=== PATIENT | female | born 1940 | race Caucasian/White ===

== ENCOUNTER → 2017-02-18 | Outpatient (CLI) | payer MEDICARE, BC ==
--- NOTE | 2017-02-20 12:01 | MM ---
Reason for exam: screening (asymptomatic). Last mammogram was performed 4 years and 4 months ago. History: Patient is postmenopausal. Family history of premenopausal breast cancer in sister. Benign excisional biopsy of the left breast, December 11, 1999. Took estrogen for 13 years. Physical Findings: A clinical breast exam by your physician is recommended on an annual basis and results should be correlated with mammographic findings. MG 3D Screening Mammo W/Cad Bilateral CC and MLO view(s) were taken. Prior study comparison: October 29, 2012, bilateral digital screening mammo w/CAD. There are scattered fibroglandular densities. No significant changes when compared with prior studies. ASSESSMENT: Negative, BI-RAD 1 RECOMMENDATION: Routine screening mammogram of both breasts in 1 year.
== END | disposition home or self-care (01) ==
LOC: RADMAMWWP 14:21
PROVIDERS: ATTEND Obstetrics & Gynecology
DX: Z12.31 Encounter for screening mammogram for malignant neoplasm of breast (principal)
CPT/HCPCS: 77063; G0202

== ENCOUNTER 2018-04-15 12:24 | Emergency (ER) | payer MEDICARE, BC ==
[2018-04-15 12:31] VITALS: TEMP 98
[2018-04-15] MEDS ORDERED: SODIUM CHLORIDE 0.9% 500 ML IV ONE ×2 (12:51→14:38)
--- NOTE | 2018-04-15 12:56 | ED ---
General Adult HPI - General Chief complaint: Recheck/Abnormal Lab/Rx Stated complaint: elevated BP Time Seen by Provider: 04/15/18 12:38 Source: patient, RN notes reviewed, old records reviewed Mode of arrival: wheelchair Limitations: no limitations - History of Present Illness Initial comments: 78-year-old female presented for evaluation of elevated blood pressure. Patient does have history of hypertension. She is currently taking lisinopril. Several weeks ago she was seen by her primary care physician was noted to have an elevated blood pressure at that time her physician stated she should take 1 additional lisinopril. Patient states that she has not been checking her blood pressure between however yesterday she took it due to a subconjunctival hemorrhage on the left. She noted that her blood pressure was 190/80. She took an extra dose of lisinopril yesterday evening and rechecked her blood pressure this morning it was still elevated so she took 2 doses of her lisinopril this morning. Patient has no complaints time my evaluation. She did have a mild headache yesterday which was relieved with Advil. She has no headache. No focal weakness. No chest pain. No nausea vomiting or diarrhea. Patient's only other chronic medical problem is hypercholesterolemia. - Related Data Home Medications Medication Instructions Recorded Confirmed Levothyroxine Sodium [Synthroid] 75 mcg PO DAILY 04/15/18 04/15/18 Lisinopril [Prinivil] 20 mg PO DAILY 04/15/18 04/15/18 Lovastatin [Mevacor] 40 mg PO HS 04/15/18 04/15/18 Previous Rx's Medication Instructions Recorded Lisinopril 30 mg PO DAILY #30 tab 04/15/18 Allergies Allergy/AdvReac Type Severity Reaction Status Date / Time No Known Allergies Allergy Unverified 04/15/18 12:31 Review of Systems ROS Statement: Those systems with pertinent positive or pertinent negative responses have been documented in the HPI. ROS Other: All systems not noted in ROS Statement are negative. Past Medical History Past Medical History: Hyperlipidemia, Hypertension History of Any Multi-Drug Resistant Organisms: None Reported Past Surgical History: No Surgical Hx Reported Past Psychological History: No Psychological Hx Reported Smoking Status: Never smoker Past Alcohol Use History: None Reported Past Drug Use History: None Reported General Exam Limitations: no limitations General appearance: alert, in no apparent distress Head exam: Present: atraumatic, normocephalic Eye exam: Present: PERRL, EOMI, other (Left subconjunctival hemorrhage) ENT exam: Present: normal exam Neck exam: Present: normal inspection. Absent: tenderness, meningismus Respiratory exam: Present: normal lung sounds bilaterally. Absent: respiratory distress, wheezes, rales Cardiovascular Exam: Present: regular rate, normal rhythm GI/Abdominal exam: Present: soft. Absent: distended, tenderness, guarding Extremities exam: Present: normal inspection, full ROM, normal capillary refill. Absent: pedal edema Neurological exam: Present: alert, oriented X3, CN II-XII intact. Absent: motor sensory deficit Psychiatric exam: Present: normal affect, normal mood Skin exam: Present: warm, dry, intact. Absent: cyanosis, diaphoretic Course Vital Signs 04/15/18 04/15/18 04/15/18 12:29 14:11 14:37 Temperature 98 F Pulse Rate 65 67 54 L Respiratory 18 16 18 Rate Blood Pressure 176/95 212/88 224/91 O2 Sat by Pulse 98 98 Oximetry 04/15/18 04/15/18 04/15/18 15:14 15:55 15:57 Temperature Pulse Rate 75 64 Respiratory 20 18 Rate Blood Pressure 192/89 178/79 163/78 O2 Sat by Pulse 100 Oximetry Medical Decision Making - Medical Decision Making Medical record is reviewed, patient is currently on 20 mg of lisinopril. Basic laboratory studies are obtained, these are all within normal limits including normal kidney function. Chest x-ray negative for cardiomegaly or pulmonary edema. Patient's blood pressure is down trending in the emergency department. Repeat is 163/78. She remains asymptomatic while in the emergency department. Her lisinopril dose will be increased to 30 mg. She will follow-up with her primary care physician. She will return with the development of any symptoms including focal weakness, headache, or chest pain. - Lab Data Result diagrams: 04/15/18 14:06 04/15/18 14:06 Lab Results 04/15/18 04/15/18 04/15/18 Range/Units 14:06 14:06 14:06 WBC 7.2 (3.8-10.6) k/uL RBC 4.51 (3.80-5.40) m/uL Hgb 14.0 (11.4-16.0) gm/dL Hct 41.3 (34.0-46.0) % MCV 91.5 (80.0-100.0) fL MCH 31.0 (25.0-35.0) pg MCHC 33.9 (31.0-37.0) g/dL RDW 13.7 (11.5-15.5) % Plt Count 239 (150-450) k/uL Neutrophils % 49 % Lymphocytes % 38 % Monocytes % 6 % Eosinophils % 4 % Basophils % 1 % Neutrophils # 3.6 (1.3-7.7) k/uL Lymphocytes # 2.8 (1.0-4.8) k/uL Monocytes # 0.4 (0-1.0) k/uL Eosinophils # 0.3 (0-0.7) k/uL Basophils # 0.0 (0-0.2) k/uL Sodium 142 (137-145) mmol/L Potassium 4.3 (3.5-5.1) mmol/L Chloride 105 (98-107) mmol/L Carbon Dioxide 25 (22-30) mmol/L Anion Gap 12 mmol/L BUN 18 H (7-17) mg/dL Creatinine 0.89 (0.52-1.04) mg/dL Est GFR (CKD-EPI)AfAm 72 (>60 ml/min/1.73 sqM) Est GFR (CKD-EPI)NonAf 63 (>60 ml/min/1.73 sqM) Glucose 92 (74-99) mg/dL Calcium 10.0 (8.4-10.2) mg/dL Total Bilirubin 0.6 (0.2-1.3) mg/dL AST 21 (14-36) U/L ALT 25 (9-52) U/L Alkaline Phosphatase 68 (38-126) U/L Troponin I <0.012 (0.000-0.034) ng/mL Total Protein 7.0 (6.3-8.2) g/dL Albumin 4.5 (3.5-5.0) g/dL Disposition Clinical Impression: Asymptomatic hypertension Disposition: HOME SELF-CARE Condition: Fair Instructions: Hypertension (ED) Prescriptions: Lisinopril 30 mg PO DAILY #30 tab Is patient prescribed a controlled substance at d/c from ED?: No Referrals: Conchita Singh MD [Primary Care Provider] - 1-2 days Time of Disposition: 15:59
[2018-04-15 14:17] LABS: Basophils % (A) 1 %; Eosinophils # (A) 0.3 k/uL (0-0.7); Eosinophils % (A) 4 %; HCT 41.3 % (34.0-46.0); Lymphocytes # (A) 2.8 k/uL (1.0-4.8); Lymphocytes % (A) 38 %; MCHC 33.9 g/dL (31.0-37.0); MCV 91.5 fL (80.0-100.0); Mean Platelet Volume 7.6; Monocytes # (A) 0.4 k/uL (0-1.0); Monocytes % (A) 6 %; Neutrophils # (A) 3.6 k/uL (1.3-7.7); Neutrophils % (A) 49 %; Platelet Count 239 k/uL (150-450); RBC 4.51 m/uL (3.80-5.40); RDW 13.7 % (11.5-15.5); WBC 7.2 k/uL (3.8-10.6)
[2018-04-15] MEDS ORDERED: hydrALAZINE HCL 20 MG/ML 1 ML VIAL IVP STA (14:24)
[2018-04-15 14:33] LABS: Albumin 4.5 g/dL (3.5-5.0); Potassium 4.3 mmol/L (3.5-5.1); Total Bilirubin 0.6 mg/dL (0.2-1.3)
--- NOTE | 2018-04-15 14:34 | XR ---
EXAMINATION TYPE: XR chest 2V DATE OF EXAM: 04/15/2018 COMPARISON: 12/07/2012 TECHNIQUE: PA and lateral views submitted. HISTORY: Pain and elevated blood pressure FINDINGS: The lungs are clear and there is no pneumothorax, pleural effusion, or focal pneumonia. Hyperinflat ion suggests COPD. Diffuse osteopenia and arthropathy of the shoulders. Heart size is stable. No over t failure. Degenerative change of the spine. IMPRESSION: 1. No acute process. Correlate for COPD.
[2018-04-15 15:56] VITALS: PULSE 64; RESP 18
[2018-04-15 15:57] VITALS: BP 163/78
== END 2018-04-15 16:19 | disposition home or self-care (01) ==
LOC: EC 12:24
DX: I10 Essential (primary) hypertension (principal); H11.32 Conjunctival hemorrhage, left eye; E78.5 Hyperlipidemia, unspecified; E78.00 Pure hypercholesterolemia, unspecified; Z79.899 Other long term (current) drug therapy
CPT/HCPCS: 36415; 80053; 84484; 85025; 71046; 99284; 96374; J0360

== ENCOUNTER → 2018-04-27 | Outpatient (CLI) | payer MEDICARE, BC ==
--- NOTE | 2018-04-27 17:03 | US ---
EXAMINATION TYPE: US carotid duplex BILAT DATE OF EXAM: 04/27/2018 COMPARISON: NONE CLINICAL HISTORY: Z82.49 FAMILY HISTORY OF ISCHEMIC HEART. EXAM MEASUREMENTS: RIGHT: Peak Systolic Velocity (PSV) cm/sec ----- Right CCA: 60.7 ----- Right ICA: 90.8 ----- Right ECA: 89.7 ICA/CCA ratio: 1.5 RIGHT: End Diastole cm/sec ----- Right CCA: 17.1 ----- Right ICA: 32.5 ----- Right ECA: 21.5 LEFT: Peak Systolic Velocity (PSV) cm/sec ----- Left CCA: 79.9 ----- Left ICA: 90.8 ----- Left ECA: 88.4 ICA/CCA ratio: 1.1 LEFT: End Diastole cm/sec ----- Left CCA: 18.8 ----- Left ICA: 31.4 ----- Left ECA: 10.7 VERTEBRALS (direction of flow): Right Vertebral: Antegrade Left Vertebral: Antegrade Rhythm: Normal No elevated velocities, no significant stenosis. Grayscale, color Doppler, spectral Doppler imaging performed of the carotid arteries, waveform analys is does not show significant stenosis of the proximal internal carotid arteries bilaterally by Dopple r criteria. IMPRESSION: No hemodynamic significant stenosis of the proximal internal carotid arteries bilaterall y by Doppler criteria, an indirect measurement of carotid stenosis.
== END | disposition home or self-care (01) ==
LOC: RADUSWWP 15:40
PROVIDERS: ATTEND Family Medicine
DX: Z13.6 Encounter for screening for cardiovascular disorders (principal); Z82.49 Family history of ischemic heart disease and other diseases of the circulatory system
CPT/HCPCS: 93880

== ENCOUNTER → 2018-07-08 | Outpatient (CLI) | payer MEDICARE, BC ==
--- NOTE | 2018-07-08 22:34 | CT ---
EXAMINATION TYPE: CT iac wo/w con DATE OF EXAM: 07/08/2018 COMPARISON: NONE HISTORY: Right sided hearing loss. CT DLP: 283 mGycm. Automated Exposure Control for Dose Reduction was Utilized. TECHNIQUE: CT scan of internal auditory canal is performed without and with IV contrast, thin cut axi al images are obtained, coronal reformatted images are also reviewed. Patient injected with 80 cc of Isovue-300 for the study. FINDINGS: The external auditory canals are patent bilaterally. Mastoid air cells show no evidence of abnormal opacification bilaterally. There is aeration extending into the bilateral petrous apices wi thout suspicious opacification. The middle ear ossicles are symmetric and unremarkable. There is no evidence of suspicious surrounding soft tissue density to suggest cholesteatoma. The scutum is prese rved bilaterally. The cochlea and the semicircular canals are symmetric and unremarkable. Vestibula r aqueduct and internal carotid canal appear unremarkable. No suspicious enhancement is present. Temporomandibular joints show symmetric moderate narrowing and flattening of the mandibular condyles. Visualized paranasal sinuses show mild to moderate inferior mucosal thickening in the right maxilla ry sinus. Remainder visualized paranasal sinuses are clear. Nasal septum is deviated to right of midl ine. Visualized portion brain parenchyma is felt within normal limits. IMPRESSION: No significant abnormality seen to account for patient's symptoms of right-sided hearing loss.
== END | disposition home or self-care (01) ==
LOC: RADCTMAIN 15:39
PROVIDERS: ATTEND Otolaryngology
DX: H93.19 Tinnitus, unspecified ear (principal); H91.91 Unspecified hearing loss, right ear
CPT/HCPCS: 82565; 84520; 70482; 36415; Q9967

== ENCOUNTER → 2019-07-22 | Outpatient (CLI) | payer MEDICARE, BC ==
--- NOTE | 2019-07-25 15:03 | MM ---
Reason for exam: screening (asymptomatic). Last mammogram was performed 2 years and 5 months ago. History: Patient is postmenopausal. Family history of premenopausal breast cancer in sister at age 35. Benign excisional biopsy of the left breast, December 11, 1999. Took estrogen for 13 years. Physical Findings: A clinical breast exam by your physician is recommended on an annual basis and results should be correlated with mammographic findings. MG 3D Screening Mammo W/Cad Bilateral CC and MLO view(s) were taken. Prior study comparison: February 18, 2017, bilateral MG 3d screening mammo w/cad. October 29, 2012, bilateral digital screening mammo w/CAD. There are scattered fibroglandular densities. Benign appearing vascular bilateral calcifications. No suspicious abnormality. No significant changes when compared with prior studies. ASSESSMENT: Benign, BI-RAD 2 RECOMMENDATION: Routine screening mammogram of both breasts in 1 year.
== END | disposition home or self-care (01) ==
LOC: RADMAMWWP 14:12
PROVIDERS: ATTEND Family Medicine
DX: Z12.31 Encounter for screening mammogram for malignant neoplasm of breast (principal)
CPT/HCPCS: 77063; 77067

== ENCOUNTER 2019-12-06 21:15 | Emergency (ER) | payer MEDICARE, BC ==
[2019-12-06 21:24] VITALS: TEMP 97.4
[2019-12-06] MEDS ORDERED: SODIUM CHLORIDE 0.9% 1,000 ML IV STA (22:22)
[2019-12-06] MEDS ORDERED: SODIUM CHLORIDE 0.9% 500 ML 500 ML IV STA (22:22)
--- NOTE | 2019-12-06 22:29 | ED ---
Recheck HPI - General Chief Complaint: Recheck/Abnormal Lab/Rx Stated Complaint: high BP Time Seen by Provider: 12/06/19 21:50 Source: patient Mode of arrival: ambulatory Limitations: no limitations - History of Present Illness Initial Comments: This is a 71-year-old female with a history of hypertension states her blood pressure is been going erratic today. She did take extra medication throughout the day the patient states that he still has blood pressure that has been up and down throughout the day. He states he started feeling some slight frontal dull achy discomfort around her for had no blurry vision no focal loss of function to her upper or lower extremities no nausea vomiting fevers chills sweats or other symptoms. She states the headache was mild. - Related Data Home Medications Medication Instructions Recorded Confirmed Levothyroxine Sodium [Synthroid] 75 mcg PO DAILY 04/15/18 12/06/19 Atorvastatin [Lipitor] 20 mg PO DAILY 12/06/19 12/06/19 amLODIPine [Norvasc] 2.5 mg PO DAILY 12/06/19 12/06/19 Previous Rx's Medication Instructions Recorded Lisinopril 30 mg PO DAILY #30 tab 04/15/18 Allergies Allergy/AdvReac Type Severity Reaction Status Date / Time No Known Allergies Allergy Verified 12/06/19 22:35 Review of Systems ROS Statement: Those systems with pertinent positive or pertinent negative responses have been documented in the HPI. ROS Other: All systems not noted in ROS Statement are negative. Past Medical History Past Medical History: Hyperlipidemia, Hypertension History of Any Multi-Drug Resistant Organisms: None Reported Past Surgical History: Hysterectomy, Orthopedic Surgery Additional Past Surgical History / Comment(s): jaw reconstruction after FX Past Psychological History: No Psychological Hx Reported Smoking Status: Never smoker Past Alcohol Use History: Rare Past Drug Use History: None Reported General Exam - General Exam Comments Initial Comments: This is a well-developed well-nourished awake alert oriented 3 female Limitations: no limitations General appearance: alert, in no apparent distress Head exam: Present: atraumatic, normocephalic, normal inspection Eye exam: Present: normal appearance, PERRL, EOMI. Absent: scleral icterus, conjunctival injection, periorbital swelling ENT exam: Present: mucous membranes dry Neck exam: Present: normal inspection, full ROM, other (No stridor JVD or bruits). Absent: tenderness, meningismus, lymphadenopathy Respiratory exam: Present: normal lung sounds bilaterally. Absent: respiratory distress, wheezes, rales, rhonchi, stridor Cardiovascular Exam: Present: regular rate, normal rhythm, normal heart sounds. Absent: systolic murmur, diastolic murmur, rubs, gallop, clicks GI/Abdominal exam: Present: soft, normal bowel sounds. Absent: distended, tenderness, guarding, rebound, rigid, bruit, pulsatile mass Extremities exam: Present: normal inspection, full ROM, normal capillary refill. Absent: tenderness, pedal edema, joint swelling, calf tenderness Back exam: Present: normal inspection Neurological exam: Present: alert, oriented X3, CN II-XII intact Psychiatric exam: Present: normal affect, normal mood Skin exam: Present: warm, dry, intact, normal color. Absent: rash Course Vital Signs 12/06/19 12/06/19 12/06/19 21:20 22:02 22:06 Temperature 97.4 F L Pulse Rate 82 68 Pulse Rate [ 88 Forest Economist ] Respiratory 18 16 Rate Blood Pressure 152/85 191/86 O2 Sat by Pulse 100 96 Oximetry Medical Decision Making - Medical Decision Making Patient's feeling improved her blood pressure is normalized patient was given fluids clinical evidence of dehydration. Patient will keep her follow-up with her doctor tomorrow as planned return if needed - Lab Data Result diagrams: 12/06/19 22:36 12/06/19 22:36 Lab Results 12/06/19 12/06/19 12/06/19 Range/Units 22:36 22:36 22:36 WBC 8.6 (3.8-10.6) k/uL RBC 4.41 (3.80-5.40) m/uL Hgb 13.8 (11.4-16.0) gm/dL Hct 40.7 (34.0-46.0) % MCV 92.5 (80.0-100.0) fL MCH 31.2 (25.0-35.0) pg MCHC 33.8 (31.0-37.0) g/dL RDW 13.2 (11.5-15.5) % Plt Count 261 (150-450) k/uL Neutrophils % (Manual) 51 % Lymphocytes % (Manual) 41 % Monocytes % (Manual) 4 % Eosinophils % (Manual) 3 % Basophils % (Manual) 1 % Neutrophils # (Manual) 4.39 (1.3-7.7) k/uL Lymphocytes # (Manual) 3.53 (1.0-4.8) k/uL Monocytes # (Manual) 0.34 (0-1.0) k/uL Eosinophils # (Manual) 0.26 (0-0.7) k/uL Basophils # (Manual) 0.09 (0-0.2) k/uL Nucleated RBCs 0 (0-0) /100 WBC Manual Slide Review Performed Sodium 139 (137-145) mmol/L Potassium 4.1 (3.5-5.1) mmol/L Chloride 105 (98-107) mmol/L Carbon Dioxide 26 (22-30) mmol/L Anion Gap 8 mmol/L BUN 20 H (7-17) mg/dL Creatinine 0.96 (0.52-1.04) mg/dL Est GFR (CKD-EPI)AfAm 66 (>60 ml/min/1.73 sqM) Est GFR (CKD-EPI)NonAf 57 (>60 ml/min/1.73 sqM) Glucose 100 H (74-99) mg/dL Calcium 10.0 (8.4-10.2) mg/dL Magnesium 2.2 (1.6-2.3) mg/dL Total Bilirubin 0.6 (0.2-1.3) mg/dL AST 23 (14-36) U/L ALT 14 (4-34) U/L Alkaline Phosphatase 80 (38-126) U/L Creatine Kinase 44 (30-135) U/L Troponin I <0.012 (0.000-0.034) ng/mL Total Protein 7.2 (6.3-8.2) g/dL Albumin 4.5 (3.5-5.0) g/dL Urine Color Urine Appearance (Clear) Urine pH (5.0-8.0) Ur Specific [place] (1.001-1.035) Urine Protein (Negative) Urine Glucose (UA) (Negative) Urine Ketones (Negative) Urine Blood (Negative) Urine Nitrite (Negative) Urine Bilirubin (Negative) Urine Urobilinogen (<2.0) mg/dL Ur Leukocyte Esterase (Negative) Urine RBC (0-5) /hpf Urine WBC (0-5) /hpf Ur Squamous Epith Cells (0-4) /hpf Urine Bacteria (None) /hpf 12/06/19 Range/Units 22:36 WBC (3.8-10.6) k/uL RBC (3.80-5.40) m/uL Hgb (11.4-16.0) gm/dL Hct (34.0-46.0) % MCV (80.0-100.0) fL MCH (25.0-35.0) pg MCHC (31.0-37.0) g/dL RDW (11.5-15.5) % Plt Count (150-450) k/uL Neutrophils % (Manual) % Lymphocytes % (Manual) % Monocytes % (Manual) % Eosinophils % (Manual) % Basophils % (Manual) % Neutrophils # (Manual) (1.3-7.7) k/uL Lymphocytes # (Manual) (1.0-4.8) k/uL Monocytes # (Manual) (0-1.0) k/uL Eosinophils # (Manual) (0-0.7) k/uL Basophils # (Manual) (0-0.2) k/uL Nucleated RBCs (0-0) /100 WBC Manual Slide Review Sodium (137-145) mmol/L Potassium (3.5-5.1) mmol/L Chloride (98-107) mmol/L Carbon Dioxide (22-30) mmol/L Anion Gap mmol/L BUN (7-17) mg/dL Creatinine (0.52-1.04) mg/dL Est GFR (CKD-EPI)AfAm (>60 ml/min/1.73 sqM) Est GFR (CKD-EPI)NonAf (>60 ml/min/1.73 sqM) Glucose (74-99) mg/dL Calcium (8.4-10.2) mg/dL Magnesium (1.6-2.3) mg/dL Total Bilirubin (0.2-1.3) mg/dL AST (14-36) U/L ALT (4-34) U/L Alkaline Phosphatase (38-126) U/L Creatine Kinase (30-135) U/L Troponin I (0.000-0.034) ng/mL Total Protein (6.3-8.2) g/dL Albumin (3.5-5.0) g/dL Urine Color Yellow Urine Appearance Clear (Clear) Urine pH 6.0 (5.0-8.0) Ur Specific [place] 1.016 (1.001-1.035) Urine Protein Negative (Negative) Urine Glucose (UA) Negative (Negative) Urine Ketones Negative (Negative) Urine Blood Negative (Negative) Urine Nitrite Negative (Negative) Urine Bilirubin Negative (Negative) Urine Urobilinogen <2.0 (<2.0) mg/dL Ur Leukocyte Esterase Moderate H (Negative) Urine RBC 2 (0-5) /hpf Urine WBC 7 H (0-5) /hpf Ur Squamous Epith Cells 2 (0-4) /hpf Urine Bacteria Rare H (None) /hpf - EKG Data -: EKG Interpreted by Me (Sinus rhythm rate was 60. A 150 to QRS 80 QT since QTC 404/44 minimal volt) - Radiology Data Radiology results: report reviewed (Did review the imaging and report no acute findings.), image reviewed Disposition Clinical Impression: Hypertension, Dehydration Disposition: HOME SELF-CARE Condition: Good Instructions (If sedation given, give patient instructions): Hypertension (ED), Dehydration (ED) Is patient prescribed a controlled substance at d/c from ED?: No Referrals: Conchita Singh MD [Primary Care Provider] - 1-2 days
[2019-12-06 23:02] LABS: HCT 40.7 % (34.0-46.0); HGB 13.8 gm/dL (11.4-16.0); MCH 31.2 pg (25.0-35.0); MCHC 33.8 g/dL (31.0-37.0); MCV 92.5 fL (80.0-100.0); Mean Platelet Volume 7.8; Platelet Count 261 k/uL (150-450); RBC 4.41 m/uL (3.80-5.40); RDW 13.2 % (11.5-15.5); WBC 8.6 k/uL (3.8-10.6)
--- NOTE | 2019-12-06 23:02 | XR ---
EXAMINATION TYPE: XR chest 2V DATE OF EXAM: 12/06/2019 COMPARISON: 04/15/2018 HISTORY: Hypertension TECHNIQUE: 2 views FINDINGS: Heart is normal. Lungs are clear. Diaphragm is normal. Bony thorax is intact. There are tyler st leads. IMPRESSION: No active cardiopulmonary disease. Normal heart. No change.
[2019-12-06 23:11] LABS: Albumin 4.5 g/dL (3.5-5.0); Appearance,Urine Clear (Clear); Bacteria,Urine Rare /hpf; Bilirubin,Urine Negative (Negative); Blood,Urine Negative (Negative); Color,Urine Yellow; Glucose,Urine (UA) Negative (Negative); Ketones,Urine Negative (Negative); Leukocyte Esterase,Urine Moderate (Negative); Magnesium 2.2 mg/dL (1.6-2.3); Nitrite,Urine Negative (Negative); Potassium 4.1 mmol/L (3.5-5.1); Protein,Urine Negative (Negative); RBC,Urine 2 /hpf (0-5); Specific Gravity,Urine 1.016 (1.001-1.035); Squamous Epithelial Cell,Urine 2 /hpf (0-4); Total Bilirubin 0.6 mg/dL (0.2-1.3); Total Protein 7.2 g/dL (6.3-8.2); Urobilinogen,Urine <2.0 mg/dL (<2.0); WBC,Urine 7 /hpf (0-5)
[2019-12-06 23:31] LABS: Basophils # (M) 0.09 k/uL (0-0.2); Eosinophils # (M) 0.26 k/uL (0-0.7); Lymphocytes # (M) 3.53 k/uL (1.0-4.8); Monocytes # (M) 0.34 k/uL (0-1.0); Neutrophils # (M) 4.39 k/uL (1.3-7.7); Neutrophils % (M) 51 %; Nucleated Red Blood Cells 0 /100 WBC (0-0); Total Cells Counted 100
[2019-12-07 00:14] VITALS: BP 141/69; PULSE 67; RESP 20
== END 2019-12-07 00:17 | disposition home or self-care (01) ==
LOC: EC 21:15
DX: E86.0 Dehydration (principal); I10 Essential (primary) hypertension; R51 Headache; E78.5 Hyperlipidemia, unspecified; Z79.890 Hormone replacement therapy; Z79.899 Other long term (current) drug therapy
CPT/HCPCS: 36415; 71046; 80053; 81001; 82550; 83735; 84484; 85025; 93005; 96360; 96361; 99284

== ENCOUNTER → 2021-08-30 | Outpatient (CLI) | payer MEDICARE, BC ==
--- NOTE | 2021-08-30 15:58 | US ---
EXAMINATION TYPE: US axilla RT DATE OF EXAM: 08/30/2021 COMPARISON: NONE CLINICAL HISTORY: R22.2 Localized swelling, mass and lump, trunk. Patient has small palpable under he r right axilla for 1 year, no skin changes, not tender, pt says it has gotten bigger, small palp felt by settlement technician also Soft tissue scan of right inferior axilla produces normal anatomy with small lymph node = 0.7 x 0.6 x 0.4cm IMPRESSION: 1. Sl normal-appearing lymph node right axilla
== END | disposition home or self-care (01) ==
LOC: RADUSWWP 13:27
PROVIDERS: ATTEND Family Medicine
DX: R22.2 Localized swelling, mass and lump, trunk (principal)

== ENCOUNTER → 2021-09-12 | Outpatient (CLI) | payer MEDICARE, BC ==
--- NOTE | 2021-09-12 12:41 | P.STRESS ---
- Stress Test Note Stress Test Results/Findings: Exam Performed: NM stress cardiolite complete Exam Date: 09/12/21 Reason for Exam: Back, shoulder and jaw pain Height: 4 ft 11 in Weight: 53.524 kg Protocol: Prashanth Stage: 3 Duration of Exercise: 7:13 Resting Heart Rate: 58 Resting Blood Pressure: 146/67 Maximum Achieved Heart Rate: 135 Maximum Achieved Blood Pressure: 213/65 85% PMHR: 119 100% PMHR: 140 METS: 8.7 Technologist Comment: Stress Test Results/Findings: Patient underwent exercise stress EKG with a Prashanth protocol treadmill stress test. Patient exercised into Stage 3 for a total of 7 minutes and 13 seconds reaching a total of 8.7 METS. Patient's maximum heart rate was 135 which represented 96% age-predicted maximum heart rate. Stress EKG findings: At baseline patient's EKG showed normal sinus rhythm, normal axis, no significant ST or T wave abnormalities. At peak exercise, EKG showed nonspecific 0.[address] depressions in the inferior and lateral leads. Conclusions: 1. Normal EKG response to exercise without evidence of inducible ischemia. 2. Fair exercise capacity.
--- NOTE | 2021-09-12 13:02 | NM ---
EXAMINATION TYPE: NM stress cardiolite complete DATE OF EXAM: 09/12/2021 COMPARISON: NONE HISTORY: Hypertension TECHNIQUE: After the intravenous administration of 10.2 mCi Tc 99m Sestamibi - Rest images obtained 60 minutes post injection. The patient exercised using a JADA protocol and 1 minute prior to peak exercise was injected with 26.4 mCi Tc 99m Sestamibi - Stress images obtained 40 minutes post injecti on. FINDINGS: Targeted heart rate was achieved during performance of the study. Review of stress and rest SPECT loraine ges demonstrates no distinct perfusion abnormality. Gated analysis shows normal wall motion with an estimated left ventricular ejection fraction of 33 %. IMPRESSION: No scintigraphic evidence for reversible ischemia Ejection fraction of 33% correlate clinically with echocardiogram.
== END ==
LOC: RADNMMAIN 08:35
PROVIDERS: ATTEND Family Medicine
DX: I10 Essential (primary) hypertension (principal); M54.9 Dorsalgia, unspecified; M25.519 Pain in unspecified shoulder; R68.84 Jaw pain
CPT/HCPCS: 93017; 78452; A9500

== ENCOUNTER → 2021-09-24 | Outpatient (CLI) | payer MEDICARE, BC ==
--- NOTE | 2021-09-25 10:00 | ECHOF ---
Referral Reason:R06.09 Other forms of dyspnea MEASUREMENTS -------- HEIGHT: 149.9 cm WEIGHT: 53.5 kg BP: 161/72 RVIDd: 3.0 cm (< 3.3) IVSd: 1.0 cm (0.6 - 1.1) LVIDd: 3.5 cm (3.9 - 5.3) LVPWd: 1.0 cm (0.6 - 1.1) IVSs: 1.4 cm LVIDs: 2.4 cm LVPWs: 1.4 cm LA Diam: 3.3 cm (2.7 - 3.8) Ao Diam: 2.6 cm (2.0 - 3.7) AV Cusp: 1.6 cm (1.5 - 2.6) MV EXCURSION: 12.180 mm (> 18.000) MV EF SLOPE: 69 mm/s (70 - 150) EPSS: 0.3 cm MV E Keith: 0.73 m/s MV DecT: 231 ms MV A Keith: 0.85 m/s MV E/A Ratio: 0.86 RAP: 5.00 mmHg RVSP: 26.02 mmHg FINDINGS -------- Sinus rhythm. This was a technically adequate study. The left ventricular size is normal. Left ventricular wall thickness is normal. Overall left vent ricular systolic function is normal with, an EF between 55 - 60 %. The right ventricle is normal in size. Normal LA size by volume 22+/-6 ml/m2. The right atrium is normal in size. Interatrial and interventricular septum intact. The aortic valve is trileaflet, and appears structurally normal. No aortic stenosis or regurgitation. The mitral valve is normal. Mild mitral annular calcification present. Mild tricuspid regurgitation present. Right ventricular systolic pressure is normal at < 35 mmHg. Trace/mild (physiologic) pulmonic regurgitation. The aortic root size is normal. Normal inferior vena cava with normal inspiratory collapse consistent with estimated right atrial pre ssure of 5 mmHg. There is no pericardial effusion. CONCLUSIONS -------- 1. The left ventricular size is normal. 2. Left ventricular wall thickness is normal. 3. Overall left ventricular systolic function is normal with, an EF between 55 - 60 %. 4. The aortic valve is trileaflet, and appears structurally normal. No aortic stenosis or regurgitati on. 5. Mild mitral annular calcification present. 6. Mild tricuspid regurgitation present. 7. Trace/mild (physiologic) pulmonic regurgitation. 8. There is no pericardial effusion. WELDING ROBOT OPERATOR: FEI Rice
== END | disposition home or self-care (01) ==
LOC: RADECHMAIN 10:55
PROVIDERS: ATTEND Family Medicine
DX: I08.8 Other rheumatic multiple valve diseases (principal)
CPT/HCPCS: 93306

== ENCOUNTER → 2021-10-29 | Outpatient (CLI) | payer MEDICARE, BC ==
--- NOTE | 2021-10-31 10:00 | MM ---
Reason for exam: screening (asymptomatic). Last mammogram was performed 2 years and 3 months ago. History: Patient is postmenopausal. Family history of premenopausal breast cancer in sister at age 35. Benign excisional biopsy of the left breast, December 11, 1999. Took estrogen for 13 years. Physical Findings: A clinical breast exam by your physician is recommended on an annual basis and results should be correlated with mammographic findings. MG 3D Screening Mammo W/Cad Bilateral CC and MLO view(s) were taken. Prior study comparison: July 22, 2019, bilateral MG 3d screening mammo w/cad. February 18, 2017, bilateral MG 3d screening mammo w/cad. There are scattered fibroglandular densities. Benign bilateral vascular calcifications. No significant changes when compared with prior studies. ASSESSMENT: Negative, BI-RAD 1 RECOMMENDATION: Routine screening mammogram of both breasts in 1 year.
== END | disposition home or self-care (01) ==
LOC: RADMAMWWP 13:10
PROVIDERS: ATTEND Family Medicine
DX: Z12.31 Encounter for screening mammogram for malignant neoplasm of breast (principal); Z78.0 Asymptomatic menopausal state; Z80.3 Family history of malignant neoplasm of breast
CPT/HCPCS: 77063; 77067

== ENCOUNTER → 2023-06-26 | Outpatient (CLI) | payer MEDICARE, OTHER ==
--- NOTE | 2023-06-26 13:55 | MM ---
Reason for Exam: Clinical finding. Last mammogram was performed 1 year(s) and 8 month(s) ago. Indicated Problems: Lump or thickening of the right side for 2 Year(s). Patient History: Menarche at age 14. First Full-Term at age 22. Left ovary removed at age 51. Right ovary removed at age 51. Hysterectomy at age 51. Postmenopausal. Patient has history of breast feeding. Patient used Estrogen for 13 years. 12/11/1999, Benign Excisional Biopsy on the left side. Sister had breast cancer, age 35. Risk Values: Radha 5 year model risk: 3.5%. NCI Lifetime model risk: 4.7%. Tissue Density: There are scattered fibroglandular densities. Findings: Analyzed By CAD. No suspicious mass, architectural distortion, or group of calcifications within either breast. Benign vascular calcifications within both breasts. Overall Assessment: Incomplete: need additional imaging evaluation, BI-RAD 0 Management: Diagnostic Breast Ultrasound of the right breast. A clinical breast exam by your physician is recommended on an annual basis and results should be correlated with mammographic findings. This exam should not preclude additional follow-up of suspicious palpable abnormalities. Results were given to the patient verbally at the time of exam. Note on Radha scores and lifetime risk: 1. A Radha score greater than 3% is considered moderate risk. If this is the case, consider specialist referral to assess eligibility for a risk reducing agent. If overall lifetime risk for the development of breast cancer is 20% or higher, the patient may qualify for future screening with alternating mammogram and breast MRI. Electronically signed and approved by: Vahe Rodney D.O.
--- NOTE | 2023-06-26 14:32 | USB ---
Reason for Exam: Clinical finding. Patient History: Menarche at age 14. First Full-Term at age 22. Left ovary removed at age 51. Right ovary removed at age 51. Hysterectomy at age 51. Postmenopausal. Patient has history of breast feeding. Patient used Estrogen for 13 years. 12/11/1999, Benign Excisional Biopsy on the left side. Sister had breast cancer, age 35. Risk Values: Radha 5 year model risk: 3.5%. NCI Lifetime model risk: 4.7%. Technique: Method: Targeted. Prior Study Comparison: 02/18/2017 Bilateral Screening Mammogram, [facility]. 07/22/2019 Bilateral Screening Mammogram, [facility]. 10/29/2021 Bilateral Screening Mammogram, [facility]. Findings: The area of palpable concern of the right breast and the axilla of the right breast were scanned. Targeted ultrasound of the right axilla was performed. There is a homogeneous ill-defined soft tissue mass within the right axilla measuring 4.2 x 2.2 x 1.2 cm. This is parallel in orientation without internal color flow. No posterior acoustic features. This is most consistent with a benign lipoma. No pathologically enlarged lymphadenopathy identified. Overall Assessment: Benign, BI-RAD 2 Management: Screening Mammogram of both breasts in 1 year. A clinical breast exam by your physician is recommended on an annual basis and results should be correlated with mammographic findings. This exam should not preclude additional follow-up of suspicious palpable abnormalities. Results were given to the patient verbally at the time of exam. Electronically signed and approved by: Vahe Rodney D.O.
== END | disposition home or self-care (01) ==
LOC: RADMAMWWP 13:18
PROVIDERS: ATTEND Family Medicine
DX: N63.31 Unspecified lump in axillary tail of the right breast (principal); Z78.0 Asymptomatic menopausal state; Z80.3 Family history of malignant neoplasm of breast
CPT/HCPCS: 77066; 76642; G0279; 77062